=== PATIENT | male | born 1980 | race Caucasian/White ===

== ENCOUNTER 2017-02-04 20:57 | Emergency (ER) | payer OTHER ==
[~2017-02-04] VITALS: Ht 180.3 cm; Wt 74.9 kg
[~2017-02-04 20:57] MED LIST: CARAFATE1 GM PO; DESYREL 150 MG150 MG PO; QUETIAPINE FUM100 MG PO; ZOFRAN4 MG PO; ~No Medications
[2017-02-04] MEDS ORDERED: AMOXICILLIN875 MG PO (23:09)
[2017-02-04] MEDS ORDERED: MOTRIN600 MG PO (23:09)
[2017-02-04] MEDS ORDERED: PERCOCET 5/31 TABLET PO (23:09)
[2017-02-04 23:17] VITALS: BP 132/78
== END 2017-02-04 23:18 | disposition home or self-care (01) ==
LOC: EME 20:57 → EXP 20:57
DX: K04.7 Periapical abscess without sinus (principal)
CPT/HCPCS: 99281; 99283